=== PATIENT | male | born 1965 | race Caucasian/White ===

== ENCOUNTER 2020-02-26 09:38 | Outpatient (CLI) | payer MEDICARE ==
--- NOTE | 2020-02-26 17:53 | RAD ---
RIGHT ANKLE THREE VIEWS: 02/26/20 Marked soft tissue swelling is seen around the ankle, but no acute fracture was apparent. The articul ar surfaces are smooth. A large calcaneal spur was noted. Some bony spurring at the tip of the medial malleolus might be from prior trauma. IMPRESSION: Soft tissue swelling but no acute findings. POS: HOME
--- NOTE | 2020-02-26 17:55 | RAD ---
RIGHT KNEE FOUR VIEWS: 02/26/20 No fracture or large joint effusion was seen. Osteoarthritis is present consisting of medial joint sp audi narrowing and prominent osteophytes. Patellofemoral osteophytes are particularly large. There may be slight medial subluxation of the femur on the tibia. IMPRESSION: Moderately severe osteoarthritis. POS: HOME
== END 2020-02-26 09:39 | disposition home or self-care (01) ==
LOC: BURRAD 09:38
PROVIDERS: ATTEND Family Medicine
DX: S86.911A Strain of unspecified muscle(s) and tendon(s) at lower leg level, right leg, initial encounter (principal); S96.911A Strain of unspecified muscle and tendon at ankle and foot level, right foot, initial encounter; M17.11 Unilateral primary osteoarthritis, right knee; M79.89 Other specified soft tissue disorders